=== PATIENT | male | born 1985 | race American Indian/Alaskan Native ===

== ENCOUNTER 2021-03-29 12:18 | Emergency (ER) | payer SELFPAY ==
[2021-03-29] MEDS ORDERED: IBUPROFEN 600 MG TAB PO ONE (13:03)
--- NOTE | 2021-03-29 13:35 | XRay Report ---
XR knee 3V RT INDICATION / CLINICAL INFORMATION: injuried rt knee pain. COMPARISON: None available. FINDINGS: No acute fracture. Normal alignment. Joint spaces are preserved. No destructive osseous lesion or s uspicious periosteal reaction. Impression: 1.No significant osseous abnormality. Signer Name: Luis Eduardo Murrieta MD Signed: 03/29/2021 1:30 PM Workstation Name: [id number]
--- NOTE | 2021-03-29 13:45 | Emergency Department Report ---
ED Lower Extremity HPI - General Chief Complaint: Extremity Injury, Lower Stated Complaint: RIGHT KNEE PAIN Time Seen by Provider: 03/29/21 12:50 Source: patient Mode of arrival: Ambulatory Limitations: No Limitations - History of Present Illness Initial Comments: The patient was evaluated in the emergency department for symptoms described in the history of present illness. He/she was evaluated in the context of the global COVID-19 pandemic, which necessitated consideration that the patient might be at risk for infection with the virus that causes COVID-19. Institutional protocols and algorithms that pertain to the evaluation of patients at risk for COVID-19 are in a state of rapid change based on information released by regulatory bodies including the CDC and federal and state organizations. These policies and algorithms were followed during the patient's care in the emergency department. Please note that these policies, procedures and recommendations changed on a rapid basis. 36-year-old male presents to the emergency room complaining of right knee injury yesterday. Patient states that he twisted his right knee while play ing soccer. He states he has never injured the knee before. States he has pain worse when he bends it. He is taken nothing for his pain. Denies any swelling to his knee. No past medical history takes no meds on a daily basis has no known drug allergies. He states he is followed by urgent care family practice on [facility]. Complaint: knee injury Onset/Timin -: days(s) Injury: Knee: Right Type of Injury: hyperflexion Place: street/outdoors ([employer] soccer) Severity: moderate Severity scale (0 -10): 7 Improves With: immobilization Worsens With: movement Context: running Associated Symptoms: able to partially bear weight - Related Data Previous Rx's Medication Instructions Recorded Last Taken Type Ibuprofen [Motrin 600 MG tab] 600 mg PO Q8H PRN #30 tablet 03/29/21 Unknown Rx traMADoL [Ultram 50 MG tab] 50 mg PO Q6HR PRN #12 tablet 03/29/21 Unknown Rx Allergies Allergy/AdvReac Type Severity Reaction Status Date / Time No Known Allergies Allergy Unverified 03/29/21 12:20 ED Review of Systems ROS: Stated complaint: RIGHT KNEE PAIN Other details as noted in HPI Comment: All other systems reviewed and negative ED Past Medical Hx - Past Medical History Previous Medical History?: No - Surgical History Hx Appendectomy: Yes - Medications Home Medications: Home Medications Medication Instructions Recorded Confirmed Last Taken Type Ibuprofen [Motrin 600 MG tab] 600 mg PO Q8H PRN #30 tablet 03/29/21 Unknown Rx traMADoL [Ultram 50 MG tab] 50 mg PO Q6HR PRN #12 tablet 03/29/21 Unknown Rx ED Physical Exam - General Limitations: No Limitations General appearance: alert, in no apparent distress - Head Head exam: Present: atraumatic, normocephalic - Eye Eye exam: Present: normal appearance - ENT ENT exam: Present: mucous membranes moist - Neck Neck exam: Present: normal inspection - Respiratory Respiratory exam: Present: normal lung sounds bilaterally. Absent: respiratory distress - Cardiovascular Cardiovascular Exam: Present: regular rate, normal rhythm. Absent: systolic murmur, diastolic murmur, rubs, gallop - GI/Abdominal GI/Abdominal exam: Present: soft, normal bowel sounds - Rectal Rectal exam: Present: deferred - Extremities Exam Extremities exam: Present: normal inspection - Expanded Lower Extremity Exam Right Hip exam: Present: normal inspection Knee exam: Present: full ROM, tenderness. Absent: swelling, abrasion, erythema Lower Leg exam: Present: normal inspection, full ROM Ankle exam: Present: normal inspection, full ROM Foot/Toe exam: Present: normal inspection, full ROM Neuro vascular tendon exam: Present: no vascular compromise Gait: Positive: observed and limited by pain - Back Exam Back exam: Present: normal inspection - Neurological Exam Neurological exam: Present: alert, oriented X3 - Psychiatric Psychiatric exam: Present: normal affect, normal mood - Skin Skin exam: Present: warm, dry, intact, normal color. Absent: rash ED Course Vital Signs 03/29/21 03/29/21 12:22 14:17 Temperature 97.7 F Pulse Rate 63 80 Respiratory 14 16 Rate Blood Pressure 128/72 Blood Pressure 123/78 [Right] O2 Sat by Pulse 96 97 Oximetry ED Lower Extremity MDM - Radiology Data Radiology results: report reviewed [facility] [address] [place] [address] XRay Report Signed Patient: WHIT HEREDIA MR#: [id number] : 1985 Acct:[id number] Age/Sex: 36 / M ADM Date: 03/29/21 Loc: ED Attending Dr: Ordering Physician: MARY JO MOELLER Date of Service: 03/29/21 Procedure(s): XR knee 3V RT Accession Number(s): [id number] cc: MARY JO MOELLER Fluoro Time In Minutes: XR knee 3V RT INDICATION / CLINICAL INFORMATION: injuried rt knee pain. COMPARISON: None available. FINDINGS: No acute fracture. Normal alignment. Joint spaces are preserved. No destructive osseous lesion or suspicious periosteal reaction. Impression: 1.No significant osseous abnormality. Signer Name: Luis Eduardo Murrieta MD Signed: 03/29/2021 1:30 PM Workstation Name: [id number] Transcribed By: COOPER Dictated By: Luis Eduardo Murrieta MD Electronically Authenticated By: Luis Eduardo Murrieta MD Signed Date/Time: 03/29/211329 DD/ 29 TD/TT: - Medical Decision Making 36-year-old male presents to the emergency room complaining of right knee injury yesterday. Patient states that he twisted his right knee while playing soccer. He states he has never injured the knee before. States he has pain worse when he bends it. He is taken nothing for his pain. Denies any swelling to his knee. No past medical history takes no meds on a daily basis has no known drug allergies. He states he is followed by urgent care family practice on [facility]. Critical care attestation.: If time is entered above; I have spent that time in minutes in the direct care of this critically ill patient, excluding procedure time. ED Disposition Clinical Impression: Right knee injury, Uses crutches Disposition: 01 HOME / SELF CARE / HOMELESS Is pt being admited?: No Does the pt Need Aspirin: No Condition: Stable Instructions: Knee Sprain, Adult, Vpib-gn-Iety Additional Instructions: X-ray shows no acute fractures. I am placing you in knee immobilizer and you need to follow-up with orthopedist as you most likely need an MRI of your knee and this is be done outpatient. Take pain medication as needed do not operate heavy machinery while taking tramadol. Prescriptions: Ibuprofen [Motrin 600 MG tab] 600 mg PO Q8H PRN #30 tablet PRN Reason: Pain traMADoL [Ultram 50 MG tab] 50 mg PO Q6HR PRN #12 tablet PRN Reason: Pain Referrals: JOSE MATSON MD [Staff Physician] - 3-5 Days WILLIS STEINBERG MD [Staff Physician] - 3-5 Days Time of Disposition: 13:46
[2021-03-29 14:19] VITALS: BP 123/78
== END 2021-03-29 15:29 | disposition home or self-care (01) ==
LOC: ED 12:18
DX: S89.81XA Other specified injuries of right lower leg, initial encounter (principal); X58.XXXA Exposure to other specified factors, initial encounter; Y93.89 Activity, other specified; Y92.89 Other specified places as the place of occurrence of the external cause; Y99.8 Other external cause status
CPT/HCPCS: 99283